=== PATIENT | female | born 1955 | race Caucasian/White ===

== ENCOUNTER 2016-11-03 16:41 | Inpatient (IN) | payer BC ==
[~2016-11-03] VITALS: Ht 160 cm; Wt 61.0 kg
[~2016-11-03 16:41] MED LIST: ALENDRONATE SOD10 M1 PO; COTOLONE5 MG PO; FOLIC ACID 1MG T1 MG PO; HYDROXYCHLOROQ200 MG PO; LEVOTHROID0.1 MG PO; LEVOTHYROXINE0.1 M2 PO; METHOTREXATE2.5 M1 PO; MOTRIN600 MG PO
[2016-11-03 16:43] VITALS: BP 145/91
[2016-11-03 17:21] LABS: HEMOGLOBIN 13.7 g/dL (12.2-16.2); LYMPH # 0.8 K/mm3 (0.7-4.5); LYMPH % 16.5 % (10-50.0)
--- NOTE | 2016-11-03 18:03 | Emergency Room Report ---
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 Y Clinical Suspician of Infection? Y Mental Status: 1 - Regular (Normal Baseline) Sepsis Risk:Severe Sepsis Risk Have you (or family members/close friends) recently traveled outside the [place]? N If Yes, where/when: Have you had exposure to infectious disease within the past month? N TB? Other? Specify: Source patient, RN notes reviewed, family, RN/MD Exam Limitations no limitations Comment This is 61-year-old lady brought in on a stretcher from Dr. Berger's office after experiencing dizzy spell. Apparently, according the patient, she was at work where she suddenly became weak, and she presented to Dr. Berger's office for evaluation, who sent her to the emergency room for further investigations. Patient denies any pain or discomfort at current time. ALLERGIES Coded Allergies: No Known Allergies (11/03/16) Home Medications Reported Medications Hydrochlorothiazide 50 MG PO DAILY #90 TAB Prednisone (Prednisone 5MG) 5 MG PO DAILY #90 TAB Alendronate Sodium 10 MG PO DAILY Hydroxychloroquine Sulfate (Hydroxychloroquine) 200 MG PO DAILY FOLIC ACID (Folic Acid) 1 MG PO DAILY #100 TAB Levothyroxine Sodium 0.1 MG PO DAILY METHOTREXATE SODIUM (Methotrexate) 2.5 MG PO DAILY History Medical History General Angina: No IA: No Hypertension? No Hyperlipidemia? No CHF? No DVT? No PE? No COPD? No Asthma? No Anemia? No GERD? No Gastric ulcers? No GI Bleed? No Hernia? No Thyroid Problems? Yes Hypothyroidism? Yes CVA? No Seizures? No Diabetes? No Renal Insuffiency? No End Stage Renal Disease? No UTI? No Stones? No GB Disease: No Asplenia? No Hepatitis? No Sickle Cell Disease? No Arthritis? Yes Migraines? No Cataracts? No Glaucoma? No MRSA? No TB? No Anxiety? No Depression? No Cancer? No More? No Immunization Hx DT/Tetanus 5-10 YRS Surgical Hx Previous Surgery?Y TUBAL LIGATION D & C CARPAL TUNNEL SURGERY L&R SKIN CANCER Social History Smoking Hx Smoker: Never Smoker Tobacco: No Are you/the child exposed to second-hand smoke: No Alcohol Alcohol: No Review of Systems All Other Systems Reviewed and Negative Psychiatric/Neurological weakness Physical Exam Vital Signs Vital Signs Date Time Temp Pulse Resp B/P Pulse O2 O2 Flow FiO2 Ox Delivery Rate 11/03 2024 98.4 92 20 120/64 96 OXYGEN 2 11/03 1942 98.1 96 22 118/66 95 11/03 1918 98.1 96 22 118/66 95 11/03 1842 107 22 122/73 98 11/03 1804 102 22 117/65 97 11/03 1732 98.1 126 22 120/71 97 11/03 1643 100.0 129 22 145/91 92 General Appearance normal appearance, WD/WN, no apparent distress Eye Exam - bilateral eye normal exam, bilateral eye PERRL, bilateral eye EOMI Ear, Nose, Throat hearing grossly normal, normal ENT inspection Neck normal inspection, non-tender, supple, full range of motion Respiratory Status Yes: trachea midline, chest symmetrical, non tender chest. No: respiratory distress. Lung Sounds bilateral: normal breath sounds, lungs clear. 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 No Comment 06:35pm-case discussed with Dr. Ba, advised of patient's condition, blood work, vital signs changes with orthstais, x-ray findings, electrocardiogram, etc. Mejia will admit the patient to his service. Care of patient transferred to Dr. Ba at this time. I will write temporary bridge admit orders, per hospital policy. . Nurse to call Dr. Ba upon patient's arrival to the floor, in order to obtain a full admit inpatient orders. Results/Orders Laboratory Tests 11/03/162103: Creatine Kinase 62, CK-MB (CK-2) Rel Index 0.8, CK and CKMB Interp 0.5, Troponin I < 0.02 11/03/16 183: Creatine Kinase Cancelled, CK-MB (CK-2) Rel Index Cancelled, CK and CKMB Interp Cancelled, Troponin I Cancelled 11/03/161711: Phosphorus 1.8 L 11/03/161711: Magnesium 1.6 11/03/161711: Lactic Acid 2.0 11/03/161711: TSH 0.47, Free T4 Index 11.6, Thyroxine (T4) 12.6, T3 Uptake 37 11/03/161711: Creatine Kinase 73, CK-MB (CK-2) Rel Index 0.7, CK and CKMB Interp 0.5, Troponin I < 0.02 11/03/161711: B-Natriuretic Peptide < 5 11/03/161711: Sodium 130 L, Potassium 2.8 *L, Chloride 94 L, Carbon Dioxide 29, BUN 27 H, Creatinine 1.3 H, Estimated Creat Clear 44 L, Estimated GFR (MDRD) 41 L, Glucose 117 H, Calcium 8.5, Total Bilirubin 0.9, AST 54 H, ALT 36, Alkaline Phosphatase 77, Total Protein 6.3 L, Albumin 2.8 L, Globulin 3.5 H, Albumin/ Globulin Ratio 0.8 L, D-Dimer >5000 *H, WBC 4.6 L, RBC 4.17 L, Hgb 13.7, Hct 38.5, MCV 92.3, RDW 16.6, Plt Count 123 L, MPV 10.2, Gran % 75.0, Gran # 3.4, Lymphocytes % 16.5, Monocytes % 4.5, Eosinophils % 2.9, Basophils % 1.1, Lymphocytes # 0.8, Monocytes # 0.2, Eosinophils # 0.1, Basophils # 0.1, PUBS MCHC 35.6 H, MCH 32.8 H Current Medication Orders Sig/Jyotsna Start time Last Medication Dose Route Stop Time Status Admin Sodium Chloride 1,000 ML .[id number] 11/03 1914 DC 11/04 IV 0853 Sodium Chloride 10 ML PRN PRN 11/03 1730 AC IV Orders Procedure Date/time Status [id number] FAT/LO CHO/JOHN 11/04 B Complete CARDIAC ENZYMES 11/04 0300 Complete CARDIAC ENZYMES 11/03 2100 Complete ADMITTED PT IS ACTUALLY IN BED 11/03 2030 Active 12 LEAD EKG-AFSHIN (INITIAL) 11/03 1841 Active ELECTROCARDIOGRAM REQUEST 11/03 1841 Active Decision to admit 11/[address] CHEST W/PE PROTOCOL REQ 11/03 1833 Complete THYROID PANEL 2 (WITH TSH) 11/03 1832 Complete D-DIMER 11/03 183 Complete BRAIN NATRIURETIC PEPTIDE 11/03 1832 Complete CARDIAC ENZYMES 11/03 1804 Complete IV SALINE LOCK 11/03 1718 Active CBC WITH AUTO DIFF 11/03 1708 Complete CHEM 12 PROFILE 11/03 1708 Complete PULSE OXIMETRY REQUEST 11/03 UNK Active OXYGEN REQUEST 11/03 UNK Active VITAL SIGNS 11/03 UNK Active SYSTEM SUPPORT ANALYST 11/03 UNK Active POM NURSE LISSETH HOSE ORDER 11/03 UNK Active CODE STATUS 11/03 UNK Active PATIENT ACTIVITY ORDER 11/03 UNK Active CULTURE, BLOOD 11/03 UNK Active UPPER RESPIRATORY PANEL, PCR 11/03 UNK Complete PHOSPHORUS 11/03 UNK Complete MAGNESIUM 11/03 UNK Complete LACTIC ACID 11/03 UNK Complete 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 of ischemic chgs, no ectopy, normal QRS, normal [place], no EKG for comparison, non-spec. ST/Twave chgs, ST elevation, ST depression, LBBB, RBBB, ectopy, abnormal Q waves XRAY/CT/US XRAY/CT/US 1 XRAY chest XR interpretation by discussed w/radiologist Xray Results no infiltrates, normal heart size, normal lung inflation meme XRAY/CT/US 2 XRAY chest XR interpretation by discussed w/radiologist Xray Results see radiologist report Departure Departure Time of Disposition 1832 Disposition Still a Patient Clinical Impression Primary Impression: Orthostatic hypotension Secondary Impressions: Hypokalemia Condition STABLE Referrals Lucy Castaneda APRN (Family) ED Critical Care Critical Care No at 1127
--- NOTE | 2016-11-03 18:03 | Emergency Room Report ---
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 Y Clinical Suspician of Infection? Y Mental Status: 1 - Regular (Normal Baseline) Sepsis Risk:Severe Sepsis Risk Have you (or family members/close friends) recently traveled outside the [place]? N If Yes, where/when: Have you had exposure to infectious disease within the past month? N TB? Other? Specify: Source patient, RN notes reviewed, family, RN/MD Exam Limitations no limitations Comment This is 61-year-old lady brought in on a stretcher from Dr. Berger's office after experiencing dizzy spell. Apparently, according the patient, she was at work where she suddenly became weak, and she presented to Dr. Berger's office for evaluation, who sent her to the emergency room for further investigations. Patient denies any pain or discomfort at current time. ALLERGIES Coded Allergies: No Known Allergies (11/03/16) Home Medications Reported Medications Hydrochlorothiazide 50 MG PO DAILY #90 TAB Prednisone (Prednisone 5MG) 5 MG PO DAILY #90 TAB Alendronate Sodium 10 MG PO DAILY Hydroxychloroquine Sulfate (Hydroxychloroquine) 200 MG PO DAILY FOLIC ACID (Folic Acid) 1 MG PO DAILY #100 TAB Levothyroxine Sodium 0.1 MG PO DAILY METHOTREXATE SODIUM (Methotrexate) 2.5 MG PO DAILY History Medical History General Angina: No ID: No Hypertension? No Hyperlipidemia? No CHF? No DVT? No PE? No COPD? No Asthma? No Anemia? No GERD? No Gastric ulcers? No GI Bleed? No Hernia? No Thyroid Problems? Yes Hypothyroidism? Yes CVA? No Seizures? No Diabetes? No Renal Insuffiency? No End Stage Renal Disease? No UTI? No Stones? No GB Disease: No Asplenia? No Hepatitis? No Sickle Cell Disease? No Arthritis? Yes Migraines? No Cataracts? No Glaucoma? No MRSA? No TB? No Anxiety? No Depression? No Cancer? No More? No Immunization Hx DT/Tetanus 5-10 YRS Surgical Hx Previous Surgery?Y TUBAL LIGATION D & C CARPAL TUNNEL SURGERY L&R SKIN CANCER Social History Smoking Hx Smoker: Never Smoker Tobacco: No Are you/the child exposed to second-hand smoke: No Alcohol Alcohol: No Review of Systems All Other Systems Reviewed and Negative Psychiatric/Neurological weakness Physical Exam Vital Signs Vital Signs Date Time Temp Pulse Resp B/P Pulse O2 O2 Flow FiO2 Ox Delivery Rate 11/03 2024 98.4 92 20 120/64 96 OXYGEN 2 11/03 1942 98.1 96 22 118/66 95 11/03 1918 98.1 96 22 118/66 95 11/03 1842 107 22 122/73 98 11/03 1804 102 22 117/65 97 11/03 1732 98.1 126 22 120/71 97 11/03 1643 100.0 129 22 145/91 92 General Appearance normal appearance, WD/WN, no apparent distress Eye Exam - bilateral eye normal exam, bilateral eye PERRL, bilateral eye EOMI Ear, Nose, Throat hearing grossly normal, normal ENT inspection Neck normal inspection, non-tender, supple, full range of motion Respiratory Status Yes: trachea midline, chest symmetrical, non tender chest. No: respiratory distress. Lung Sounds bilateral: normal breath sounds, lungs clear. 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 No Comment 06:35pm-case discussed with Dr. Ba, advised of patient's condition, blood work, vital signs changes with orthstais, x-ray findings, electrocardiogram, etc. Mejia will admit the patient to his service. Care of patient transferred to Dr. Ba at this time. I will write temporary bridge admit orders, per hospital policy. . Nurse to call Dr. Ba upon patient's arrival to the floor, in order to obtain a full admit inpatient orders. Results/Orders Laboratory Tests 11/03/162103: Creatine Kinase 62, CK-MB (CK-2) Rel Index 0.8, CK and CKMB Interp 0.5, Troponin I < 0.02 11/03/16 183: Creatine Kinase Cancelled, CK-MB (CK-2) Rel Index Cancelled, CK and CKMB Interp Cancelled, Troponin I Cancelled 11/03/161711: Phosphorus 1.8 L 11/03/161711: Magnesium 1.6 11/03/161711: Lactic Acid 2.0 11/03/161711: TSH 0.47, Free T4 Index 11.6, Thyroxine (T4) 12.6, T3 Uptake 37 11/03/161711: Creatine Kinase 73, CK-MB (CK-2) Rel Index 0.7, CK and CKMB Interp 0.5, Troponin I < 0.02 11/03/161711: B-Natriuretic Peptide < 5 11/03/161711: Sodium 130 L, Potassium 2.8 *L, Chloride 94 L, Carbon Dioxide 29, BUN 27 H, Creatinine 1.3 H, Estimated Creat Clear 44 L, Estimated GFR (MDRD) 41 L, Glucose 117 H, Calcium 8.5, Total Bilirubin 0.9, AST 54 H, ALT 36, Alkaline Phosphatase 77, Total Protein 6.3 L, Albumin 2.8 L, Globulin 3.5 H, Albumin/ Globulin Ratio 0.8 L, D-Dimer >5000 *H, WBC 4.6 L, RBC 4.17 L, Hgb 13.7, Hct 38.5, MCV 92.3, RDW 16.6, Plt Count 123 L, MPV 10.2, Gran % 75.0, Gran # 3.4, Lymphocytes % 16.5, Monocytes % 4.5, Eosinophils % 2.9, Basophils % 1.1, Lymphocytes # 0.8, Monocytes # 0.2, Eosinophils # 0.1, Basophils # 0.1, PUBS MCHC 35.6 H, MCH 32.8 H Current Medication Orders Sig/Jyotsna Start time Last Medication Dose Route Stop Time Status Admin Sodium Chloride 1,000 ML .[id number] 11/03 1914 DC 11/04 IV 0853 Sodium Chloride 10 ML PRN PRN 11/03 1730 AC IV Orders Procedure Date/time Status [id number] FAT/LO CHO/JOHN 11/04 B Complete CARDIAC ENZYMES 11/04 0300 Complete CARDIAC ENZYMES 11/03 2100 Complete ADMITTED PT IS ACTUALLY IN BED 11/03 2030 Active 12 LEAD EKG-AFSHIN (INITIAL) 11/03 1841 Active ELECTROCARDIOGRAM REQUEST 11/03 1841 Active Decision to admit 11/[address] CHEST W/PE PROTOCOL REQ 11/03 1833 Complete THYROID PANEL 2 (WITH TSH) 11/03 1832 Complete D-DIMER 11/03 183 Complete BRAIN NATRIURETIC PEPTIDE 11/03 1832 Complete CARDIAC ENZYMES 11/03 1804 Complete IV SALINE LOCK 11/03 1718 Active CBC WITH AUTO DIFF 11/03 1708 Complete CHEM 12 PROFILE 11/03 1708 Complete PULSE OXIMETRY REQUEST 11/03 UNK Active OXYGEN REQUEST 11/03 UNK Active VITAL SIGNS 11/03 UNK Active 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 of ischemic chgs, no ectopy, normal QRS, normal [place], no EKG for comparison, non-spec. ST/Twave chgs, ST elevation, ST depression, LBBB, RBBB, ectopy, abnormal Q waves XRAY/CT/US XRAY/CT/US 1 XRAY chest XR interpretation by discussed w/radiologist Xray Results no infiltrates, normal heart size, normal lung inflation meme XRAY/CT/US 2 XRAY chest XR interpretation by discussed w/radiologist Xray Results see radiologist report Departure Departure Time of Disposition 1832 Disposition Still a Patient Clinical Impression Primary Impression: Orthostatic hypotension Secondary Impressions: Hypokalemia Condition STABLE Referrals Lucy Castaneda APRN (Family) ED Critical Care Critical Care No at 1127
[2016-11-03 18:55] LABS: FREE THYROXIN INDEX 11.6 ug/dl (5.93-13.13)
[2016-11-03 20:25] VITALS: BP 120/64
--- NOTE | 2016-11-03 21:30 | PHARMACY CLINIC NOTE ---
Patient Demographics Patient Demographics Admission date: 11/03/16 Date: 11/03/16 Time: 2128 Allergies Coded Allergies: No Known Allergies (11/03/16) HEIGHT- FT: 5 IN: 3.00 K.980 VTE General Information Labs: Laboratory Tests 11/03 171 Hematology Hgb (12.2 - 16.2 g/dL) 13.7 Hct (37.0 - 47.0 %) 38.5 Plt Count (142 - 424 K/mm3) 123 L Disclaimer The following section includes nursing documentation that has been pulled in for pharmacy review. Clinical trial participant? No VTE prophylaxis [id number] VTE prophylaxis ordered? Yes Type of prophylaxis/treatment: LISSETH at 9938
[2016-11-03] MEDS ORDERED: HYDROCHLOROTHIA50 MG PO (21:32)
[2016-11-03] MEDS ORDERED: PREDNISONE 5MG.5 MG PO (21:32)
[2016-11-03 22:18] VITALS: BP 120/64
[2016-11-03 23:50] VITALS: BP 112/49
[2016-11-04] VITALS (10 sets, daily range): BP systolic 95–137; BP diastolic 44–63
--- NOTE | 2016-11-04 07:03 | Discharge Summary Standard ---
Demographics: Admit date: 11/03/16 Chief complaint: Weakness PRIMARY DIAGNOSIS: ORTHOSTATIC HYPOTENSION; HYPOKALEMIA Allergies: Coded Allergies: No Known Allergies (11/03/16) History of present illness: History of present illness: 61-year-old female with rheumatism presented to the emergency department from my office after being sent there when she presented for profound weakness and lethargy. Patient was diagnosed with pneumonia in early October and took approximately 2 weeks to recover. She states she went to work yesterday and could not even make it assisted through the day before she was just so weak she could hardly move. She was seen in the office where the patient appeared weak and dehydrated with sinus tachycardia. She was sent to the ER for additional labs. Labs revealed hypokalemia and mild dehydration. She was admitted for IV fluid rehydration. Past medical history: Family HX Family Hx Insignificant No Diabetes No CAD No Hypertension No Hyperlipidemia No Cancer Yes TB No Immunization HX DT/Tetanus 5-10 YRS Flu 2015-FSN Pneumonia Never Had TB Test in last year No General Angina: No IA: No Hypertension? No Hyperlipidemia? No CHF? No DVT? No PE? No COPD? No Asthma? No Anemia? No GERD? No Gastric ulcers? No GI Bleed? No Hernia? No Thyroid Problems? Yes Hypothyroidism? Yes CVA? No Seizures? No Diabetes? No Renal Insuffiency? No UTI? No Stones? No GB Disease: No Nephritic Syndrome? No Asplenia? No Hepatitis? No Sickle Cell Disease? No Arthritis? Yes Migraines? No Cataracts? No Glaucoma? No MRSA? No HIV? No TB? No Anxiety? No Depression? No Cancer? No More? No Past Surgical HX Previous Surgery?Y TUBAL LIGATION D & C CARPAL TUNNEL SURGERY L&R SKIN CANCER Current home meds: Reported Medications Hydrochlorothiazide 50 MG PO DAILY #90 TAB Prednisone (Prednisone 5MG) 5 MG PO DAILY #90 TAB Alendronate Sodium 10 MG PO DAILY Hydroxychloroquine Sulfate (Hydroxychloroquine) 200 MG PO DAILY FOLIC ACID (Folic Acid) 1 MG PO DAILY #100 TAB Levothyroxine Sodium 0.1 MG PO DAILY METHOTREXATE SODIUM (Methotrexate) 2.5 MG PO DAILY Social Hx: Smoking HX Tobacco No Are you/the child exposed to second-hand smoke: No Alcohol Alcohol: No Hx of Drug Use Drug Use? No Review of systems: Constitutional no symptoms reported. Respiratory No: cough, shortness of breath. Cardiovascular No chest pain, No edema, No palpitations Gastrointestinal/Abdominal no symptoms reported Genitourinary no symptoms reported. Musculoskeletal no symptoms reported. Neurological Yes: no symptoms reported. Exam: Lab data for last 24 hours: Laboratory Tests 11/04/16 0315: Creatine Kinase 52, CK-MB (CK-2) Rel Index 1.0, CK and CKMB Interp < 0.5, Troponin I 0.02 11/03/164: Creatine Kinase 62, CK-MB (CK-2) Rel Index 0.8, CK and CKMB Interp 0.5, Troponin I < 0.02 11/03/161711: Phosphorus 1.8 L 11/03/161711: Magnesium 1.6 11/03/161711: Lactic Acid 2.0 11/03/161711: TSH 0.47, Free T4 Index 11.6, Thyroxine (T4) 12.6, T3 Uptake 37 11/03/161711: Creatine Kinase 73, CK-MB (CK-2) Rel Index 0.7, CK and CKMB Interp 0.5, Troponin I < 0.02 11/03/161711: B-Natriuretic Peptide < 5 11/03/161711: Sodium 130 L, Potassium 2.8 *L, Chloride 94 L, Carbon Dioxide 29, BUN 27 H, Creatinine 1.3 H, Estimated Creat Clear 44 L, Estimated GFR (MDRD) 41 L, Glucose 117 H, Calcium 8.5, Total Bilirubin 0.9, AST 54 H, ALT 36, Alkaline Phosphatase 77, Total Protein 6.3 L, Albumin 2.8 L, Globulin 3.5 H, Albumin/ Globulin Ratio 0.8 L, D-Dimer >5000 *H, WBC 4.6 L, RBC 4.17 L, Hgb 13.7, Hct 38.5, MCV 92.3, RDW 16.6, Plt Count 123 L, MPV 10.2, Gran % 75.0, Gran # 3.4, Lymphocytes % 16.5, Monocytes % 4.5, Eosinophils % 2.9, Basophils % 1.1, Lymphocytes # 0.8, Monocytes # 0.2, Eosinophils # 0.1, Basophils # 0.1, PUBS MCHC 35.6 H, MCH 32.8 H Microbiology 11/03 1699 BLOOD: Anaerobic Blood Culture - RECD 11/03 1699 BLOOD: Aerobic Blood Culture - RECD 11/03 170 BLOOD: Anaerobic Blood Culture - RECD 11/03 1699 BLOOD: Aerobic Blood Culture - RECD Admission vital signs: 1ST Vital Signs Result Date Time Pulse Ox 92 11/03 1643 B/P 145/91 11/03 164 Temp 100.0 11/03 164 Pulse 129 11/03 1643 Resp 22 11/03 1643 O2 Delivery OXYGEN 11/03 2024 O2 Flow Rate 2 11/03 2024 Exam General appearance: awake, no acute distress ENT: mucous membranes moist Cardiovascular: regular rate & rhythm Respiratory: clear to auscultation ABD: soft, no tenderness Extremities: moves all Hospital Course Hospital Course: Patient was admitted and placed on normal saline 125 ML an hour. Magnesium was checked because of her hypokalemia and was 1.6. After IV fluid resuscitation patient most improvement as her overall level of energy. Her appetite was good while hospitalized. She was able to ambulate without any significant presyncopal symptoms. Once patient was ambulating without difficulties she was discharged home. She's been advised not to work today and tomorrow and return to work on November 16 Medications Medications: Discharge meds are as noted. Follow up Follow up in office in: 5 DAYS with: Mejia STOREY,Bi
[2016-11-04 07:10] LABS: CORONAVIRUS 229E NOT DETECTED (NOT DETECTE); CORONAVIRUS HKU 1 NOT DETECTED (NOT DETECTE); CORONAVIRUS NL63 NOT DETECTED (NOT DETECTE); CORONAVIRUS OC43 NOT DETECTED (NOT DETECTE); RHINOVIRUS/ENTEROVIRUS NOT DETECTED (NOT DETECTE)
--- NOTE | 2016-11-04 08:26 | RADIOLOGY REPORT PS360 ---
CHEST(2 VIEWS-NOT PORTABLE) HISTORY: fever, cough COMPARISON: 10/13/2016 FINDINGS: The cardiomediastinal silhouette and pulmonary vascularity are within normal limits. There is there is a reticular appearance of the lungs bilaterally suggesting interstitial lung disease similar to somewhat improved compared to 10/13/2016. No lobar consolidation or collapse. Degenerative disc disease is present at T 10-11. No obvious effusion. IMPRESSION: Persistent but slightly improved prominence of the interstitium consistent with improving interstitial pneumonitis.
--- NOTE | 2016-11-04 09:25 | RADIOLOGY REPORT PS360 ---
CTA-CHEST HISTORY: Fever and shortness of breath, elevated d-dimer R/O PE TECHNIQUE: Helical acquisition obtained following the bolus administration of 60 mL of Isovue 370 followed by a saline bolus. Axial, sagittal, and coronal reformatted images are generated and reviewed. COMPARISON: None FINDINGS: PULMONARY ARTERIES:No pulmonary embolus evident. AORTA:No acute finding. No thoracic aortic aneurysm or dissection evident LUNGS:There is diffuse pulmonary groundglass opacity and septal thickening dependent atelectasis in the lower lobes. Opacification is present in the lingula peripherally measuring up to 8 mm. Calcified granuloma is present in the right upper lobe. PLEURAL SPACES:No significant effusion. No evidence of pneumothorax. HEART:Unremarkable. Normal heart size. No significant pericardial effusion. MEDIASTINAL AND HILAR STRUCTURES:No mediastinal or hilar mass evident. No dominant adenopathy. BONY STRUCTURES:Degenerative disc disease lower thoracic spine. LYMPH NODES:Scattered small mediastinal and hilar lymph nodes are present. UPPER ABDOMEN:Upper abdominal images show lobulation of the spleen. 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 Prominent collateral vessels apply the branches of the celiac artery from the SMA and also likely from the GILBERT although the origin of that vessel was not visible. Right kidney not visualized in the upper abdomen IMPRESSION: 1. No evidence of pulmonary embolus or aortic aneurysm. 2. Diffuse groundglass opacity and septal thickening of the lungs likely reflecting interstitial pneumonitis as previously noted on prior radiograph. This has shown some improvement on the radiographs. 3. 8 mm opacification of the lingula which could be postinflammatory. Recommend 3 month follow-up to confirm resolution or stability as developing nodule is an additional consideration 4. 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 It is also noted that the right kidney is not visible in the upper abdomen and there is not a normal right renal artery originating at the level of the left renal artery
--- NOTE | 2016-11-04 12:23 | ACUTE CARE PROGRESS NOTE (QUA) ---
Progress Notes Subjective Date 11/04/16 Time 1221 Note Patient began vomiting after breakfast. She denies abdominal pain but believes she vomited all of her breakfast. At present she has been able to hold down water. She complains of a hot sensation and a dry mouth. Blood pressure has remained stable although she is tachycardic with ambulation. She does tell me that she has been getting dyspneic on exertion for the last month. She denies chest pain. She looks well while at rest. Lungs are clear. Heart is mildly tachycardic. Abdomen is soft and nontender with active bowel sounds. Objective Findings Last VS-Temp:98.7 B/P:136/62 Pulse:118 Resp:24 SaO2:93 OXYGEN Last weight lbs:134 oz:7 K.980 Method:Bed Scales Assessment/Plan Problem List 1. Orthostatic hypotension 2. Hypokalemia 3. Vomiting 4. Sinus tachycardia 5. Dyspnea on exertion Patient condition Stable This inpt stay is expected to cross 2 MNs from start of care Yes Comments: Check echocardiogram. Continue IV fluids. Repeat labs in a.m. at 1223
[2016-11-05 03:38] VITALS: BP 112/77
--- NOTE | 2016-11-05 06:48 | ACUTE CARE PROGRESS NOTE (QUA) ---
Progress Notes Subjective Date 11/05/16 Time 0646 Note Patient developed significant fevers yesterday afternoon to 102.5. She's had recurrent fevers overnight. She is coughing more this morning. She developed mild oxygen requirement last night with a room air O2 sat of 89 percent. She had another loose stool in the evening. Respiratory PCR panel is negative. Patient is still dyspneic with mild activity. Echocardiogram is pending Patient appears comfortable while laying in bed. Oropharynx is moist and clear without erythema. Neck has no lymphadenopathy. Lungs have clear breath sounds. Heart has regular rate and rhythm. Abdomen is soft, nontender, nondistended. Chest x-ray today. Urinalysis today. Should she have recurrent fever greater than 100.5 we will draw 2 sets of blood cultures. Await labs this morning. No antibiotics as of yet Objective Findings Last VS-Temp:99.2 B/P:112/77 Pulse:98 Resp:18 SaO2:89 OXYGEN Last weight lbs:134 oz:7 K.980 Method:Bed Scales Laboratory Tests 11/04/16 1235: ESR 12 11/04/16 0705: Chlamy pneum (TEM-PCR) NOT DETECTED, Adenovirus (PCR) NOT DETECTED, B. pertussis DNA (PCR) NOT DETECTED, Coronavirus OC43 (PCR) NOT DETECTED, Coronavirus HKU1 ( PCR) NOT DETECTED, Coronavirus 229E (PCR) NOT DETECTED, Coronavirus NL63 (PCR) NOT DETECTED, Human Metapneumovirus NOT DETECTED, Influenza A (H1) PCR NOT DETECTED, Influ A (H1N1/09) PCR NOT DETECTED, Influenza A (H3) PCR NOT DETECTED, Influenza Type A (PCR) NOT DETECTED, Influenza Type B (PCR) NOT DETECTED, M. pneumoniae (PCR) NOT DETECTED, Parainfluenza 1 (PCR) NOT DETECTED, Parainfluenza 2 (PCR) NOT DETECTED, Parainfluenza 3 (PCR) NOT DETECTED, Parainfluenza 4 (PCR) NOT DETECTED, RSV (PCR) NOT DETECTED, Entero/Rhino (PCR) NOT DETECTED Assessment/Plan Problem List 1. Orthostatic hypotension 2. Hypokalemia 3. Vomiting 4. Sinus tachycardia 5. Dyspnea on exertion 6. Fever Patient condition Guarded This inpt stay is expected to cross 2 MNs from start of care Yes at 06
[2016-11-05 07:03] LABS: LYMPH # 0.8 K/mm3 (0.7-4.5); LYMPH % 17.9 % (10-50.0)
[2016-11-05 07:16] LABS: HEMOGLOBIN 11.4 g/dL (12.2-16.2)
[2016-11-05 08:15] VITALS: BP 138/64
--- NOTE | 2016-11-05 09:10 | RADIOLOGY REPORT PS360 ---
CHEST(2 VIEWS-NOT PORTABLE) COMPARISON: PA and lateral chest 11/03/2016 HISTORY: Fever, shortness of breath, hypoxia TECHNIQUE: PA and lateral chest FINDINGS: The lung arango are fairly well-expanded. There are diffuse somewhat nodular appearing interstitial pneumonic infiltrates in both perihilar regions and lower lobes which appear similar but slight more prominent to the findings seen on the chest film of 10/13/2016. There is relative sparing of the upper lobes bilaterally. There now is blunting of right costophrenic angle consistent with a small pleural effusion. Cardiac size is normal and the vascularity is normal. IMPRESSION: Diffuse bilateral nodular interstitial pneumonic infiltrates most consistent with interstitial pneumonia similar but more prominent than on the study of 10/13/2016. Again as mentioned previously chickenpox pneumonia can give this appearance.
[2016-11-05 09:30] VITALS: BP 127/65
[2016-11-05 11:04] LABS: URINE BILIRUBIN - DIPSTICK NEGATIVE (NEG); URINE BLOOD 1+ (NEG)
[2016-11-05 13:00] VITALS: BP 128/75
[2016-11-05 14:15] LABS: AEROMONAS NOT DETECTED (NOT DETECTE); ASTROVIRUS NOT DETECTED (NOT DETECTE); CYCLOSPORA CAYETANENSIS NOT DETECTED (NOT DETECTE); E COLI O157 NOT DETECTED (NOT DETECTE); ENTEROAGGREGATIVE E COLI NOT DETECTED (NOT DETECTE); ENTEROPATHOGENIC E COLI NOT DETECTED (NOT DETECTE); ENTEROTOXIGENIC E COLI NOT DETECTED (NOT DETECTE); NOROVIRUS NOT DETECTED (NOT DETECTE); SAPOVIRUS NOT DETECTED (NOT DETECTE); SHIGA-LIKE TOXIN PROD. E COLI NOT DETECTED (NOT DETECTE); SHIGELLA/ENTEROINVASIVE E COLI NOT DETECTED (NOT DETECTE); VIBRIO CHOLERAE NOT DETECTED (NOT DETECTE)
[2016-11-05 16:25] VITALS: BP 127/65
[2016-11-05 19:00] VITALS: BP 127/65
== END 2016-11-05 19:10 | disposition left against medical advice (07) | DRG 316 ==
LOC: ER 16:41 → 2ND 18:44
PROVIDERS: Emergency Medicine; Family Medicine
DX: I95.9 Hypotension, unspecified (principal); E86.0 Dehydration; E87.6 Hypokalemia; R06.00 Dyspnea, unspecified
CPT/HCPCS: J2405; Q9967

== ENCOUNTER → 2016-12-22 | Outpatient (CLI) | payer BC ==
[~2016-12-22] MED LIST changes: +HYDROCHLOROTHIA50 MG PO; +PREDNISONE 5MG.5 MG PO
[2016-12-22 12:44] LABS: BUN 9 mg/dL (7-18)
[2016-12-22 12:48] LABS: GFR (ESTIMATED) 63 ML/MIN (59-)
== END ==
LOC: LAB 10:30
PROVIDERS: Internal Medicine
DX: B39.4 Histoplasmosis capsulati, unspecified (principal)

== ENCOUNTER → 2017-07-23 | Outpatient (CLI) | payer BC | LOC: RT 09:24 | DX: M06.9 Rheumatoid arthritis, unspecified (principal); B39.3 Disseminated histoplasmosis capsulati ==